=== PATIENT | female | born 1985 | race Caucasian/White ===

== ENCOUNTER 2021-07-01 13:32 | Emergency (ER) | payer OTHER, SELFPAY ==
[2021-07-01 13:47] VITALS: BP 147/102; PULSE 98; RESP 18; TEMP 36.4; O2SAT 100
[2021-07-01 15:33] VITALS: BP 130/92; PULSE 109; RESP 16; TEMP 37.1; O2SAT 100
--- NOTE | 2021-07-01 16:10 | ED.GENADULT ---
HPI - General Adult General Chief complaint: Unspecified Stated complaint: my asshole came out of my ass Time Seen by Provider: 07/01/21 15:38 Source: patient Mode of arrival: ambulatory Limitations: no limitations History of Present Illness HPI narrative: Patient is a 35-year-old female presented with chief complaint of anal prolapse. Patient reports she was having a bowel movement when her anus prolapsed then went back in. Patient reports she had some bleeding which then stopped. She reports she does not have concern for vaginal issues or and only came to the ER because her family was concerned about her anus. She denies any bleeding, pain, inability to pass stool. Related Data Allergies Allergy/AdvReac Type Severity Reaction Status Date / Time No Known Allergies Allergy Unverified 06/20/17 21:19 Review of Systems Review of Systems: CONSTITUTIONAL: Denies fever, chills, or sweats. EYES: Denies visual changes, redness, or discharge. ENT: Denies rhinorrhea, congestion, sore throat, or otalgia. CARDIOVASCULAR: Denies chest pain, palpitations, or edema. RESPIRATORY: Denies cough or dyspnea. GASTROINTESTINAL: Reports anal prolapse Denies abdominal pain, nausea, vomiting, or diarrhea. GENITOURINARY: Denies dysuria or hematuria. SKIN: Denies rash or itching. MUSCULOSKELETAL: Denies back pain, joint pain, or myalgia. NEUROLOGIC: Denies headache, numbness, dizziness, or weakness. PSYCHIATRIC: Denies anxiety or depression. [facility] Family History Family History (Updated 10/11/12 @ 08:41 by DOCTOR UNKNOWN) Other Asthma Depression Family history of arthritis Family history of attention deficit hyperactivity disorder (ADHD) Family history of chronic obstructive pulmonary disease Family history of hearing loss Family history of mental disorder Family history of obesity Family history of seizure disorder Social History Social History Alcohol intake: never Exam Narrative: GENERAL: Well-nourished, and in no acute distress. HEAD: Normocephalic, atraumatic. EYES: PERRLA and EOMI. CHEST: Clear to auscultation. No respiratory distress. No wheezes rales or rhonchi HEART: Regular rate and rhythm. No murmur heard. Normal peripheral pulses. ABDOMEN: Not tender or distended. RECTUM: Not prolapsed, no external hemorrhoids. No active bleeding. NEURO: Alert and oriented x3 Course Vital Signs Vital signs: Vital Signs Temperature 97.5 F L 07/01/21 13:47 Pulse Rate 98 07/01/21 13:47 Respiratory Rate 18 07/01/21 13:47 Blood Pressure 147/102 H 07/01/21 13:47 Pulse Oximetry 100 07/01/21 13:47 Temperature 98.8 F 07/01/21 15:33 Pulse Rate 109 H 07/01/21 15:33 Respiratory Rate 16 07/01/21 15:33 Blood Pressure 130/92 H 07/01/21 15:33 Pulse Oximetry 100 07/01/21 15:33 Medical Decision Making MDM Narrative Medical decision making narrative: Patient's rectum was not presently prolapsed. There is no signs of bleeding from patient's rectum. Patient does not have signs of external hemorrhoids. Instructed patient to follow-up with her primary care for further evaluation and management should her symptoms return. Also discussed possibility of additional fiber or probiotics to make sure her stools are not hard and causing rectal complications. Patient instructed to return to emergency department should she have any emergent symptoms. Patient states that her rectum was her only concern and denies other concerns including , vaginal or urine concerns. Vital Signs Vital Signs: Vital Signs Temperature 97.5 F L 07/01/21 13:47 Pulse Rate 98 07/01/21 13:47 Respiratory Rate 18 07/01/21 13:47 Blood Pressure 147/102 H 07/01/21 13:47 Pulse Oximetry 100 07/01/21 13:47 Temperature 98.8 F 07/01/21 15:33 Pulse Rate 109 H 07/01/21 15:33 Respiratory Rate 16 07/01/21 15:33 Blood Pressure 130/92 H 07/01/21 15:33 Pulse Oximetry 100 07/01/21 15:33 Discha
== END 2021-07-01 17:35 | disposition home or self-care (01) ==
PROVIDERS: Emergency Provider Emergency Medicine
DX: K62.9 Disease of anus and rectum, unspecified (principal); K64.4 Residual hemorrhoidal skin tags
CPT/HCPCS: 99281

== ENCOUNTER 2024-06-24 15:03 | Emergency (ER) | payer OTHER, SELFPAY ==
--- NOTE | ~2024-06-24 | XR_ITS ---
XR forearm RT 2V Ordering provider: Adolfo Adams MD History: . large laceration, glass . Comparison: None. FINDINGS: BONES: No acute fracture or dislocation. JOINT SPACES: Normal. SOFT TISSUES: Normal. IMPRESSION: No acute osseous abnormality right forearm. Reviewed, dictated and finalized at location A. [facility]IST
[2024-06-24 15:08] VITALS: BP 122/89; PULSE 107; RESP 18; TEMP 36.7; O2SAT 100
--- NOTE | 2024-06-24 15:20 | ED_ITS ---
HPI - Wound/Laceration General Chief Complaint: Wound/Laceration Stated Complaint: R ARM LAC FROM GLASS Time Seen by Provider: 06/24/24 15:08 History of Present Illness HPI narrative: 38-year-old otherwise healthy female presenting with a right forearm laceration. Patient was thrown away something that was medical acid showed upon impact in the trash can and hit her right arm. There is some exposed muscular tissue and bleeding was controlled the patient did apply a self tourniquet for about 5-10 minutes prior to arrival. Tourniquet taken down, no arterial bleeding was noted. Pressure dressing applied in triage. Patient has no neuropathy, full sensation in the fingers, able to oppose each digit. No obvious weakness or deficits. States that her tetanus is up-to-date she has had previous lacerations repaired. No other injuries. No obvious retained foreign body. Denies any other symptoms at this time. Related Data Allergies Allergy/AdvReac Type Severity Reaction Status Date / Time No Known Allergies Allergy Unverified 06/24/24 15:19 Review of Systems Review of Systems: As reviewed above in HPI [facility] Family History Family History Other Asthma Depression Family history of arthritis Family history of attention deficit hyperactivity disorder (ADHD) Family history of chronic obstructive pulmonary disease Family history of hearing loss Family history of mental disorder Family history of obesity Family history of seizure disorder Social History Social History Alcohol intake: never Course Course Emergency Course: GENERAL: [Well-appearing, well-nourished, and in no acute distress.] HEAD: [Normocephalic, atraumatic.] EYES: [PERRLA and EOMI.] ENT: Nares clear, no rhinorrhea or epistaxis. Mucous membranes moist. NECK: Supple. CHEST: [Clear to auscultation. No respiratory distress.] HEART: [Regular rate and rhythm]. No murmur heard. [Normal peripheral pulses.] ABDOMEN: [Soft, nondistended], [nontender], [No rigidity or guarding] EXTREMITIES: Normal range of motion. [No edema.] Full strength in [facility] consultant strength on the right upper extremity. Full range of motion. Able to oppose each digit, able to make a thumbs-up sign and okay sign with full strength. SKIN: 5.5 cm laceration to the ulnar aspect of the right forearm more proximally. Exposed fat tissue and musculature but no deep tendon involvement or any exposed deeper structures. No active bleeding. No obvious retained foreign body externally. Gaping wound. NEURO: [No focal deficits]. Alert and oriented [x3.] PSYCH: [Normal mood and affect.] Vital Signs Vital signs: Vital Signs Temperature 36.7 C 06/24/24 15:08 Pulse Rate 107 H 06/24/24 15:08 Respiratory Rate 18 06/24/24 15:08 Blood Pressure 122/89 06/24/24 15:08 Pulse Oximetry 100 06/24/24 15:08 Oxygen Delivery Room Air 06/24/24 15:08 Temperature 36.7 C 06/24/24 15:08 Pulse Rate 107 H 06/24/24 15:08 Respiratory Rate 18 06/24/24 15:08 Blood Pressure 122/89 06/24/24 15:08 Pulse Oximetry 100 06/24/24 15:08 Oxygen Delivery Room Air 06/24/24 15:08 Procedures Laceration Laceration 1: Date: 06/24/24 Time: 15:15 Site: upper extremity Side (If applicable): right Size (cm): 5.5 Description: irregular Depth: involves muscle layer Local Anesthetic: lidocaine 1% Amount of anesthesia used (mL): 10 Pre-repair: wound explored, irrigated extensively (250ml saline) and deep structures intact ====== Skin Level ====== Skin layer closed with: nylon Size (cm): 4-0 Number of sutures: 10 Technique: simple, interrupted ====== Subcutaneous Layer ====== ====== Muscle Layer ====== Muscle layer closed with: vicryl Size: 4-0 Number of sutures: 4 Technique: simple, interrupted ====== Tendon Layer ====== Dressing: Pressure dressing with sterile gauze MDM - Wound/Laceration MDM Narrative Medical decision making narrative: 38-year-old female presenting with right forearm laceration. Her tetanus is up-to-date. No other injuries. 5.5 cm laceration to the ulnar aspect of the right forearm more proximally. Exposed fat tissue and musculature but no deep tendon involvement or any exposed deeper structures. No active bleeding. No obvious retained foreign body externally. Gaping wound. No obvious foreign body retained. Full range of motion of the extremity and the distal neuro vasculature is intact. Will assess with x-ray images to make sure there is no retained foreign body and primarily closed with multiple layer closure. Patient provided a dose of her home anxiety medication and [place] here for analgesia and anxiety lysis. Patient's wound was repaired with 2 layers, complex laceration repair as descr ibed above. X-ray shows no retained foreign body. Patient tolerated the procedure well, no complications. She is safe and stable for discharge home and given strict return precautions as well as instructions on wound care and when to return. Patient verbalized understanding and discharged at this time. Medical Records Attestation: I reviewed the patient's medical records. Lab Data Attestation: I reviewed the patient's lab results. Imaging Data Attestation: I personally reviewed and interpreted this imaging study as follows: My impression: Impressions Forearm X-Ray 06/24/24 15:29 IMPRESSION: No acute osseous abnormality right forearm. Discharge Plan Discharge Clinical Impression: Laceration of forearm, right, complicated Patient Disposition: Home, Self-Care Condition: Stable Instructions: Antibiotic Form, Care For Your Stitches (ED), Laceration (ED) Additional Instructions: Follow-up in 10-14 days for wound check and suture removal. The deeper layer sutures will dissolve on their own. He can take Tylenol and ibuprofen for pain control. Keep the dressing clean and dry any could wash with soap and water. Return if you develop any kind of purulent drainage, fever, intractable pain or persistent bleeding. Patient Language: [place]ian Follow-up/Referrals: PHYSICIAN,ASSISTANT PRESS OPERATOR OFFSET [Primary Care Provider] - Time of Disposition: 16:48
[2024-06-24] MEDS: HYDROcodone/acetaminophen (*CRX) 5-325 MG TABLET 1 TAB PO (15:24)
[2024-06-24] MEDS: clonazePAM (*CRX) 0.5 MG TABLET 1 MG PO (15:24)
[2024-06-24] MEDS: LIDOCAINE 1% LOCAL INJ 10 ML VIAL INFILTRATE (17:18)
== END 2024-06-24 17:20 | disposition home or self-care (01) ==
PROVIDERS: Emergency Provider Student in an Organized Health Care Education/Training Program
DX: S51.811A Laceration without foreign body of right forearm, initial encounter (principal); W45.8XXA Other foreign body or object entering through skin, initial encounter
CPT/HCPCS: 12032; 73090; 99283; A9270; J2003